=== PATIENT | female | born 1975 | race Caucasian/White ===

== ENCOUNTER 2019-09-24 19:50 | Emergency (ER) | payer MEDICAID ==
[~2019-09-24] VITALS: Ht 162.6 cm; Wt 44.9 kg
--- NOTE | 2019-09-24 20:47 | NUR ---
Pt ambulatory w/ steady gait, here for c/o midlower vaginal pain, bruising to LLE, denies any VB, no trauma, just flew fr [place] x few days ago. AOX4, afebrile w/ resp even & unlabored, mild discomfort noted. pt in gown, urine obtained & sent to lab. JACQUI Hancock at bedside for further eval.
[2019-09-24] MEDS ORDERED: ONDANSETRON HCL/PF 4 MG/2 ML VIAL ONE (20:55)
--- NOTE | 2019-09-24 21:00 | NUR ---
MIKI STARTED, LABS DRAWN & SENT.
[2019-09-24 21:02] LABS: APPEARANCE,URINE Clear (CLEAR); BILIRUBIN,URINE Negative (NEGATIVE); BLOOD, URINE Negative Ery/uL (NEGATIVE); COLOR,URINE Yellow (YELLOW); KETONES,URINE Negative (NEGATIVE); LEUKOCYTE ESTERASE ,URINE Negative (NEGATIVE); NITRITE, URINE Negative (NEGATIVE); PROTEIN,URINE Negative (NEGATIVE); UGLUCOSE Negative (NEGATIVE); UROBILINOGEN,URINE 0.2 EU/dL (0.2)
[2019-09-24] MEDS ORDERED: MORPHINE SULFATE INJ 4 MG/ML DISP.SYRIN ONE (21:02)
[2019-09-24 21:05] LABS: BASOPHILS # (AUTO) 0.1 /CMM (0.0-0.2); BASOPHILS % (AUTO) 1.5 % (0.0-2.0); HEMATOCRIT 39 % (33-45); HEMOGLOBIN 12.9 g/dL (11.5-14.8); LYMPHOCYTES # (AUTO) 2.3 /CMM (0.8-4.8); LYMPHOCYTES % (AUTO) 37.1 % (20.0-44.0); MEAN CORPUSCULAR HGB CONC 33 g/dl (31.0-36.0); MEAN CORPUSCULAR VOLUME 96 fL (82-100); MONOCYTES # (AUTO) 0.4 /CMM (0.1-1.30); MONOCYTES % (AUTO) 6.6 % (2.0-12.0); NEUTROPHILS # (AUTO) 3.2 /CMM (1.8-8.9); NEUTROPHILS % (AUTO) 50.8 % (43.0-81.0); PLATELET COUNT (AUTO) 247 /CMM (150-450); RED BLOOD CELL COUNT(AUTO) 4.04 MIL/uL (4.0-5.2); WHITE BLOOD COUNT (AUTO) 6.3 K/uL (4.3-11.0)
--- NOTE | 2019-09-24 21:06 | NUR ---
US TECH AT BEDSIDE FOR US PELVIC, DUPLEX VENOUS BLE. PT MEDICATED ORDERED FOR CONTINUED LOWER PELVIC, VAGINAL PAIN.
[2019-09-24] MEDS: ONDANSETRON HCL/PF 4 MG/2 ML VIAL IV ONE (21:08)
[2019-09-24] MEDS: MORPHINE SULFATE INJ 10 MG/ML DISP.SYRIN IV ONE (21:09)
[2019-09-24 21:23] LABS: ALBUMIN 3.6 g/dL (3.4-5.0); BILIRUBIN,DIRECT 0.1 mg/dL (0.0-0.2); BILIRUBIN,TOTAL 0.3 mg/dL (0.2-1.0); CREATININE 0.7 mg/dL (0.6-1.3); POTASSIUM 3.7 mmol/L (3.5-5.1); TOTAL PROTEIN, SERUM 7.3 g/dL (6.4-8.2)
[2019-09-24] MEDS: IV NS 0.9% 1,000 ML BAG IV ONE (21:33)
--- NOTE | 2019-09-24 21:39 | NUR ---
US complete. pt tolerated procedure well w/ no acute distress noted. pt report pain midlower pelvic partially relieved w/ medication, improved when not moving. Will continue to monitor.
--- NOTE | 2019-09-24 22:49 | NUR ---
JACQUI Hancock at bedside for update on pt status w/ discharge instructions.
--- NOTE | 2019-09-24 22:55 | NUR ---
IV removed. Catheter intact and site benign. Pressure and 4x4 applied to site. No bleeding noted.Patient discharged to home in stable condition. Written and verbal after care instructions given. Patient verbalizes understanding of instruction.
[2019-09-24 23:18] VITALS: BP 127/87
== END 2019-09-24 23:20 | disposition home or self-care (01) ==
LOC: ER 19:53
DX: S70.11XA Contusion of right thigh, initial encounter (principal); R10.2 Pelvic and perineal pain; R63.4 Abnormal weight loss; R11.2 Nausea with vomiting, unspecified; E03.9 Hypothyroidism, unspecified; F17.200 Nicotine dependence, unspecified, uncomplicated; Z87.442 Personal history of urinary calculi; Z98.890 Other specified postprocedural states; X58.XXXA Exposure to other specified factors, initial encounter; Y93.89 Activity, other specified; Y92.89 Other specified places as the place of occurrence of the external cause; Y99.8 Other external cause status
CPT/HCPCS: 36415; 76856; 80048; 80076; 81001; 85025; 85730; 93970; 96361; 96374; 96375; 99284; J2270; J2405; J7030; 81000-TC